=== PATIENT | male | born 1955 | race Caucasian/White ===

== ENCOUNTER 2016-07-21 10:45 | Emergency (ER) | payer OTHER ==
[2016-07-21 10:58] VITALS: BP 138/69
[2016-07-21] MEDS ORDERED: Sodium Chloride 0.9% 10 ML Syringe FLUSH PRN (10:59)
[2016-07-21] MEDS ORDERED: Sodium Chloride 0.9% 500 ML IV ONE (10:59)
[2016-07-21] MEDS ORDERED: Ondansetron 4 MG/2 ML SDV IVPUSH ONE (11:09)
--- NOTE | 2016-07-21 12:56 | EDM.PDOC ---
ED HPI BURN/SMOKE INHALATION - General Chief Complaint: Chemical Exposure Stated Complaint: [facility] Time Seen by Provider: 07/21/16 10:58 Source of Information: Reports: Patient, RN notes reviewed - History of Present Illness INITIAL COMMENTS - FREE TEXT/NARRATIVE: 60 year old male with H2S exposure at work about 3 hrs ago. He states he opened a tank castañeda, became very short of breath, weak, dizzy. He was able to get down to the ground. He than did pass out briefly. When he came too he "rolled away from the tank", was too weak to stand or walk. He was nauseated but did not vomit. He eventually was well enough to get to his truck and call for help. Now he still feels mildly weak and dizzy. No Perkins. Nausea if gone. - Related Data Allergies/ADRs: Allergies Allergy/AdvReac Type Severity Reaction Status Date / Time No Known Allergies Allergy Verified 07/21/16 10:52 Home Meds: Home Meds Allopurinol [Zyloprim] 100 mg PO DAILY 07/21/16 [History] Ezetimibe/Simvastatin [Vytorin 10-40 mg Tablet] 1 each PO DAILY 07/21/16 [ History] Lisinopril 20 mg PO DAILY 07/21/16 [History] Past Medical History Cardiovascular History: Reports: High cholesterol, Hypertension Musculoskeletal History: Reports: Gout - Past Surgical History Cardiovascular Surgical History: Reports: None Social & Family History - Tobacco Use Smoking Status *Q: Never Smoker Second Hand Smoke Exposure: No - Caffeine Use Caffeine Use: Reports: Coffee - Recreational Drug Use Recreational Drug Use: No ED ROS GENERAL - Review of Systems Review Of Systems: See Below Constitutional: Reports: malaise, weakness, fatigue HEENT: Denies: Throat pain, Throat swelling Respiratory: Reports: Shortness of Breath. Denies: Wheezing, Pleuritic Chest Pain, Hemoptysis Cardiovascular: Denies: Chest pain GI/Abdominal: Reports: Nausea. Denies: Abdominal pain, Vomiting Musculoskeletal: Denies: neck pain, shoulder pain, arm pain, back pain Skin: Denies: rash Neurological: Reports: Headache (mild, gone), Weakness (improving). Denies: Numbness, Tingling ED EXAM, BURN/SMOKE INHALATION - Physical Exam Exam: See Below General Appearance: alert, no apparent distress Eye Exam: bilateral eye: PERRL Mouth/Throat: No symptoms reported Head: no symptoms Neck: normal, full range of motion. No: lymphadenophy (R), lymphadenopy (L) Respiratory: no respiratory distress, lungs clear, normal breath sounds Cardiovascular: regular rate, rhythm GI/Abdominal: soft, non tender. No: guarding Back Exam: No: CVA tenderness (L), CVA tenderness (R) Extremities: no evidence of injury, normal range of motion Neurological: alert, oriented, no motor/sensory deficits Skin Exam: Warm, Dry, Normal color Course - Vital Signs Last Recorded V/S: Last Vital Signs Temp 97 F 07/21/16 10:54 Pulse 67 07/21/16 10:54 Resp 20 07/21/16 10:54 BP 138/69 07/21/16 10:54 Pulse Ox 98 07/21/16 10:54 - Orders/Labs/Meds Orders: Active Orders 24 hr Category Date Time Status EKG 12 Lead [EKG Documentation Completion] [RC] STAT Care 07/21/16 10:59 Active Peripheral IV Care [RC] . DIRECTED Care 07/21/16 10:59 Active Peripheral IV Insertion Adult [OM.PC] Stat Oth 07/21/16 10:59 Ordered Labs: Laboratory Tests 07/21/16 07/21/16 Range/Units 11:16 11:16 WBC 10.70 H (4.23-9.07) K/mm3 RBC 4.70 (4.63-6.08) M/mm3 Hgb 14.7 (13.7-17.5) gm/L Hct 42.9 (40.1-51.0) % MCV 91.3 (79.0-92.2) fl MCH 31.3 (25.7-32.2) pg MCHC 34.3 (32.2-35.5) g/dl RDW Std Deviation 48.7 H (35.1-43.9) fL Plt Count 148 L (163-337) K/mm3 MPV 9.3 L (9.4-12.3) fl Neut % (Auto) 83.5 H (34.0-67.9) % Lymph % (Auto) 9.9 L (21.8-53.1) % [place] % (Auto) 6.2 (5.3-12.2) % Eos % (Auto) 0.1 L (0.8-7.0) Baso % (Auto) 0.1 (0.1-1.2) % Neut # (Auto) 8.94 H (1.78-5.38) K/mm3 Lymph # (Auto) 1.06 L (1.32-3.57) K/mm3 [place] # (Auto) 0.66 (0.30-0.82) K/mm3 Eos # (Auto) 0.01 L (0.04-0.54) K/mm3 Baso # (Auto) 0.01 (0.01-0.08) K/mm3 Manual Slide Review Abnormal smear Sodium 139 (136-145) mEq/L Potassium 4.0 (3.5-5.1) mEq/L Chloride 103 (98-107) mEq/L Carbon Dioxide 26 (21-32) mEq/L Anion Gap 14.0 (5-15) BUN 20 H (7-18) mg/dL Creatinine 0.8 (0.7-1.3) mg/dL Est Cr Clr Drug Dosing 80.17 mL/min Estimated GFR (MDRD) > 60 (>60) mL/min BUN/Creatinine Ratio 25.0 H (14-18) Glucose 107 (80-115) mg/dL Calcium 8.7 (8.5-10.1) mg/dL Total Bilirubin 0.8 (0.2-1.0) mg/dL AST 25 (15-37) U/L ALT 79 H (16-63) U/L Alkaline Phosphatase 39 L (46-116) U/L Total Protein 6.7 (6.4-8.2) g/dl Albumin 4.0 (3.4-5.0) g/dl Globulin 2.7 gm/dL Albumin/Globulin Ratio 1.5 (1-2) Meds: Medications Discontinued Medications Generic Name Dose Route Start Last Admin Trade Name Freq PRN Reason Stop Dose Admin Sodium Chloride 500 mls @ 999 mls/hr 07/21/16 10:59 07/21/16 11:06 Normal Saline IV 07/21/16 11:29 999 mls/hr .BOLUS ONE Administration Ondansetron HCl 4 mg 07/21/16 11:09 07/21/16 11:21 Zofran IVPUSH 07/21/16 11:10 4 mg ONETIME ONE Administration Sodium Chloride 10 ml 07/21/16 10:59 07/21/16 11:06 Saline Flush FLUSH 10 ml ASDIRECTED PRN Administration Keep Vein Open - Re-Assessments/Exams Free Text/Narrative Re-Assessment/Exam: 07/21/16 21:40 Pt had arrived to ED before I came on duty at 11:00 today. He had been run through our shower at the ED entrance. Other than feeling weak and dizzy initial sx of severe weakness, dizziness, difficulty breathing have resolved. Exposure was about 3 hrs prior to time of my exam. We treated with 1 liter of IV NS. Labs came back relatively normal. AST, ALT very slightly elevated. At time of discharge he felt well enough to go home. Have recomended he not work the remainder of today and tomorrow, safe to return to work [place] as tolerated. Discharge instr. as documented. Departure - Departure Time of Disposition: 12:56 Disposition: Home, Self-Care 01 Condition: fair Clinical Impression: Toxic effect of hydrogen sulfide, accidental (unintentional), initial encounter Qualifiers: Encounter type: initial encounter Qualified Code(s): T59.6X1A - Toxic effect of hydrogen sulfide, accidental (unintentional), initial encounter Referrals: Oj Bach MD [Primary Care Provider] - Forms: ED Department Discharge, Return to Work/School Form Additional Instructions: rest, continue to drink plenty of water, increase activity slowly as tolerated. Follow clinic if not getting back to normal within 3 to 5 days as expected, return to ED if sx worsening in any way - My Orders Last 24 Hours: My Active Orders 07/21/16 10:59 EKG 12 Lead [EKG Documentation Completion] [RC] STAT Peripheral IV Care [RC] . DIRECTED Peripheral IV Insertion Adult [OM.PC] Stat - Assessment/Plan Last 24 Hours: My Active Orders 07/21/16 10:59 EKG 12 Lead [EKG Documentation Completion] [RC] STAT Peripheral IV Care [RC] . DIRECTED Peripheral IV Insertion Adult [OM.PC] Stat
== END 2016-07-21 13:20 | disposition home or self-care (01) ==
LOC: JD.ED 10:45
DX: T59.6X1A Toxic effect of hydrogen sulfide, accidental (unintentional), initial encounter (principal); I10 Essential (primary) hypertension; E78.00 Pure hypercholesterolemia, unspecified; Z79.899 Other long term (current) drug therapy
CPT/HCPCS: 36415; 80053; 85025; 93005; 96361; 96374; 99284; J2405; J7040; J7050

== ENCOUNTER 2021-10-08 16:36 | Emergency (ER) | payer OTHER ==
[2021-10-08] MEDS ORDERED: Sodium Chloride 0.9% 10 ML Syringe FLUSH PRN ×2 (16:50→17:11)
[2021-10-08] MEDS ORDERED: Sodium Chloride 0.9% 1,000 ML IV SCH (17:00)
[2021-10-08] MEDS ORDERED: Iopamidol 755 Mg/ML 100 ML Bottle IVPUSH ONE (17:11)
[2021-10-08] MEDS ORDERED: Sodium Chloride 0.9% 100 ML IV SCH (17:15)
[2021-10-08 18:06] LABS: ESTIMATED GFR 66 mL/min (>60)
[2021-10-08 18:43] VITALS: BP 110/68; PULSE 67
== END 2021-10-08 18:40 | disposition home or self-care (01) ==
LOC: JD.ED 16:36
DX: I95.89 Other hypotension (principal); F10.120 Alcohol abuse with intoxication, uncomplicated; I10 Essential (primary) hypertension; E78.00 Pure hypercholesterolemia, unspecified; Z79.899 Other long term (current) drug therapy
CPT/HCPCS: 36415; 71260; 74177; 80053; 80307; 83735; 84484; 85025; 85610; 85730; 86140; 93005; 96360; 96361; 99284; J3490; J7030; Q9967; 93010; 99283